=== PATIENT | female | born 1980 | race Caucasian/White ===

== ENCOUNTER 2024-07-06 20:49 | Emergency (ER) | payer MEDICAID, OTHER ==
[~2024-07-06] VITALS: Ht 162.6 cm; Wt 100.0 kg
[2024-07-06 20:56] VITALS: BP 175/100; PULSE 97; RESP 18; O2SAT 100
[2024-07-06] MEDS ORDERED: PRED50TA PO (23:49)
[2024-07-06] MEDS ORDERED: ALB0.5UD NEB (23:49)
[2024-07-06] MEDS ORDERED: ALBU8HFA INH (23:49)
[2024-07-06] MEDS ORDERED: FLUT16SP2 BOTHNARES (23:49)
[2024-07-06] MEDS ORDERED: PSEU120T56 PO (23:49)
[2024-07-07 00:01] VITALS: TEMP 98
== END 2024-07-07 00:03 | disposition home or self-care (01) ==
LOC: ER 20:50
DX: N39.0 Urinary tract infection, site not specified (principal); H69.90 Unspecified Eustachian tube disorder, unspecified ear; Z20.822 Contact with and (suspected) exposure to COVID-19; Z85.118 Personal history of other malignant neoplasm of bronchus and lung; Z85.43 Personal history of malignant neoplasm of ovary; Z88.0 Allergy status to penicillin; Z88.5 Allergy status to narcotic agent
CPT/HCPCS: 36415; 71045; 87502; 87503; 87811; 99284